=== PATIENT | female | born 2000 | race Native Hawaiian/Other Pacific Islander ===

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

== ENCOUNTER 2021-03-15 13:57 | Emergency (ER) | payer OTHER ==
[~2021-03-15] VITALS: Ht 160 cm; Wt 58.1 kg
[2021-03-15 15:00] VITALS: BP 106/67; TEMP 98.7
== END 2021-03-15 15:00 | disposition home or self-care (01) ==
LOC: ED 13:57
DX: N93.8 Other specified abnormal uterine and vaginal bleeding (principal)
CPT/HCPCS: 81000; 81025; 99283